=== PATIENT | female | born 1990 | race American Indian/Alaskan Native ===

== ENCOUNTER 2021-01-13 09:53 | Outpatient (CLI) | payer BC ==
[2021-01-13 10:43] LABS: Blood Urea Nitrogen 13 mg/dL (7-17)
--- NOTE | 2021-01-13 12:03 | Cat Scan Report ---
CT ABDOMEN AND PELVIS WITHOUT AND WITH CONTRAST HISTORY: PAIN IN PELVIS/ cramps frequent bowel movements, [id number] 100ml COMPARISON: None TECHNIQUE: Routine abdominal and pelvic CT exam performed without and with IV contrast. All CT scans at this location are performed using CT dose reduction for ALARA by means of automated exposure contr ol. FINDINGS: CT ABDOMEN: Lung Bases: No significant abnormality. Liver: No significant abnormality. Biliary: No significant abnormality. Spleen: No significant abnormality. Unenlarged. Pancreas: No significant abnormality. Adrenals: No significant abnormality. Kidneys: No significant abnormality. Lymphatics: No lymphadenopathy. Vasculature: No significant abnormality. Bowel/Peritoneum: No significant abnormality. No free air. No free fluid. CT PELVIC: : No significant abnormality. Lymphatics: No lymphadenopathy. Osseous Structures: No aggressive appearing osseous lesions. Additional Findings: None IMPRESSION: 1. No significant abnormality. Signer Name: Krunal Rivera MD Signed: 01/13/2021 11:59 AM Workstation Name: [id number]
== END 2021-01-13 09:54 | disposition home or self-care (01) ==
LOC: CT 09:53
PROVIDERS: ATTEND Obstetrics & Gynecology Gynecology
DX: R10.2 Pelvic and perineal pain (principal)
CPT/HCPCS: 36415; 74178; 82565; 84520; Q9967

== ENCOUNTER 2021-07-12 14:23 | Emergency (ER) | payer BC ==
[2021-07-12] MEDS ORDERED: HYDROcodone/ACETAMINOPHEN 5-325 MG TAB PO ONE (15:52)
[2021-07-12] MEDS ORDERED: ONDANSETRON 4 MG ODT TAB PO ONE (15:52)
--- NOTE | 2021-07-12 15:54 | Emergency Department Report ---
ED Abdominal Pain HPI - General Chief Complaint: Abdominal Pain Stated Complaint: AB PAIN Time Seen by Provider: 07/12/21 15:32 Source: patient Mode of arrival: Ambulatory Limitations: No Limitations - History of Present Illness Initial Comments: Patient presents with abdominal pain. She had a recent laparoscopy for endometriosis. Subsequent to that, she has had increasing pain. The procedure was done about 2 weeks ago. She states that the pain is all left-sided and in the pelvis. She had seen her planer operator for follow-up. He was told her that this was related to the insufflation and gas. She was having some brown and bloody discharge. He told her that was normal. Now she is having bloody discharge that is bright red. She does not know if this is her normal menstrual cycle or if there is something else going on. She came here for evaluation and treatment. She has not had anything for pain. The pain is described as severe and cramping. It does not radiate or migrate. Severity scale (0 -10): 10 - Related Data Previous Rx's Medication Instructions Recorded Last Taken Type HYDROcodone/APAP 5-325 [[place] 1 each PO Q6HR PRN #12 tablet 07/12/21 Unknown Rx 5/325] Ibuprofen [Motrin] 600 mg PO Q8H PRN #20 tablet 07/12/21 Unknown Rx Allergies Allergy/AdvReac Type Severity Reaction Status Date / Time No Known Allergies Allergy Verified 07/12/21 15:27 ED Review of Systems ROS: Stated complaint: AB PAIN Other details as noted in HPI Comment: All other systems reviewed and negative Constitutional: denies: fever ENT: denies: throat pain Respiratory: denies: cough Cardiovascular: denies: chest pain Gastrointestinal: as per HPI Genitourinary: as per HPI Skin: denies: rash Hematological/Lymphatic: denies: easy bruising ED Past Medical Hx - Past Medical History Additional medical history: Possible endometriosis - Surgical History Additional Surgical History: Recent laparoscopy - Social History Smoking Status: Never Smoker Substance Use Type: None - Medications Home Medications: Home Medications Medication Instructions Recorded Confirmed Last Taken Type HYDROcodone/APAP 5-325 [[place] 1 each PO Q6HR PRN #12 tablet 07/12/21 Unknown Rx 5/325] Ibuprofen [Motrin] 600 mg PO Q8H PRN #20 tablet 07/12/21 Unknown Rx ED Physical Exam - General Limitations: No Limitations, Other (Pulse ox noted and normal) General appearance: alert, in no apparent distress - Head Head exam: Present: atraumatic, normocephalic - Eye Eye exam: Present: normal appearance, EOMI - ENT ENT exam: Present: normal external ear exam - Neck Neck exam: Present: normal inspection - Respiratory Respiratory exam: Present: normal lung sounds bilaterally. Absent: respiratory distress - Cardiovascular Cardiovascular Exam: Present: regular rate, normal rhythm - GI/Abdominal GI/Abdominal exam: Present: soft, tenderness (Left pelvis and lower quadrant). Absent: guarding, rebound - Extremities Exam Extremities exam: Absent: pedal edema - Back Exam Back exam: Absent: CVA tenderness (L) - Neurological Exam Neurological exam: Present: alert, oriented X3, CN II-XII intact, normal gait - Psychiatric Psychiatric exam: Present: normal affect, normal mood - Skin Skin exam: Present: warm, dry ED Course Vital Signs 07/12/21 07/12/21 07/12/21 14:26 15:24 15:26 Temperature 99.0 F 97.6 F 97.6 F Pulse Rate 86 80 72 Respiratory 18 20 20 Rate Blood Pressure 111/80 125/75 Blood Pressure 130/86 [Left] O2 Sat by Pulse 100 99 100 Oximetry - Reevaluation(s) Reevaluation #1: 07/12/21 15:54 Labs were ordered. X-rays were ordered. Old records noted. Reevaluation #2: 07/12/21 18:31 Patient later complained that her thumb was sore. She requested x-rays. X-rays and work-up was complete. Patient was discharged. ED Medical Decision Making - Lab Data Result diagrams: 07/12/21 16:03 07/12/21 16:03 - Radiology Data Radiology results: report reviewed - Medical Decision Making Patient presents with postop abdominal pain. Etiology for this is not known. There is no evidence of perforation. She has no fever or leukocytosis. There is no peritoneal finding. I do not believe this represents any type of peritonitis or intraperitoneal abscess. She does not have pyuria suggestive of urinary tract infection. She does not report flank pain on the left suggestive of ureteral colic. She did break her thumb, but this is an avulsion fracture that will heal without difficulty. She can follow-up with her family doctor in 7 to 10 days. I do not anticipate surgical intervention. Critical Care Time: No Critical care attestation.: If time is entered above; I have spent that time in minutes in the direct care of this critically ill patient, excluding procedure time. ED Disposition Clinical Impression: Postoperative abdominal pain, Dysfunctional uterine bleeding Fracture of thumb, right, closed Qualifiers: Encounter type: initial encounter Phalanx: proximal Fracture alignment: displaced Qualified Code(s): S62.511A - Displaced fracture of proximal phalanx of right thumb, initial encounter for closed fracture Disposition: HOME / SELF CARE / HOMELESS Is pt being admited?: No Condition: Stable Instructions: How to Use Cold Therapy, [id number], Thumb Fracture, Abdominal Pain, Adult, [id number], Abnormal Uterine Bleeding, [id number], Abdominal Pain (ED) Additional Instructions: Have a bland diet. Elevate the thumb and ice the thumb. Wear the splint. Return for problems. Follow-up with your surgeon and your family doctor for recheck. Prescriptions: Ibuprofen [Motrin] 600 mg PO Q8H PRN #20 tablet PRN Reason: Pain HYDROcodone/APAP 5-325 [[place] 5/325] 1 each PO Q6HR PRN #12 tablet PRN Reason: Pain Referrals: FRANKI THOMPSON MD [Other] - 3-5 Days
[2021-07-12 16:24] LABS: Hematocrit 39.9 % (30.3-42.9); Hemoglobin 13.1 gm/dl (10.1-14.3); Mean Corpuscular HGB Conc 33 % (30-34); Mean Corpuscular Volume 97 fl (79-97); Platelet Count 273 K/mm3 (140-440); Red Blood Count 4.12 M/mm3 (3.65-5.03); Red Cell Distribution Width 13.2 % (13.2-15.2)
[2021-07-12 16:37] LABS: BUN/Creatinine Ratio 11; Blood Urea Nitrogen 9 mg/dL (7-17); Calcium 9.7 mg/dL (8.4-10.2); Hemolysis Index 2
--- NOTE | 2021-07-12 17:39 | XRay Report ---
ABDOMEN 3 VIEW(S) INDICATION / CLINICAL INFORMATION: post op pain. COMPARISON: None available. FINDINGS: TUBES / LINES: None. BOWEL GAS PATTERN: No significant abnormality. FREE AIR / EXTRALUMINAL GAS: None seen. ADDITIONAL FINDINGS: Clear lungs with normal heart size. IMPRESSION: 1. No significant abnormality. Signer Name: Gerardo Wooten MD Signed: 07/12/2021 5:34 PM Workstation Name: [id number]
--- NOTE | 2021-07-12 17:40 | XRay Report ---
Right thumb-3 views INDICATION: pain. Acute swelling COMPARISON: None available. IMPRESSION: Minimally displaced obliquely oriented intra-articular fracture along the base of the pr oximal phalanx radially with mild overlying swelling. Otherwise normal alignment. No significant DJD . Signer Name: Gerardo Wooten MD Signed: 07/12/2021 5:35 PM Workstation Name: [id number]
[2021-07-12 17:59] LABS: Mucus,Urine FEW /HPF
[2021-07-12 18:12] LABS: RBC,Urine > 182.0 /HPF (0.0-6.0)
[2021-07-12 18:18] LABS: Bilirubin,Urine Negative (Negative); Blood,Urine Moderate (Negative); Color,Urine Yellow (Yellow)
[2021-07-12 18:19] LABS: Urobilinogen,Urine < 2.0 mg/dL (<2.0)
[2021-07-12 18:39] VITALS: BP 121/75
== END 2021-07-12 19:05 | disposition home or self-care (01) ==
LOC: ED 14:23
DX: S62.501A Fracture of unspecified phalanx of right thumb, initial encounter for closed fracture (principal); G89.18 Other acute postprocedural pain; N93.8 Other specified abnormal uterine and vaginal bleeding; X58.XXXA Exposure to other specified factors, initial encounter; Y93.89 Activity, other specified; Y92.89 Other specified places as the place of occurrence of the external cause; Y99.8 Other external cause status
CPT/HCPCS: 36415; 74022; 80048; 81001; 84703; 85027; 99284; J3490; Q0162

== ENCOUNTER 2021-08-10 14:02 | Outpatient (CLI) | payer BC ==
--- NOTE | 2021-08-10 14:46 | XRay Report ---
RIGHT HAND 2 VIEWS INDICATION / CLINICAL INFORMATION: RT HAND PAIN COMPARISON: 07/12/2021 FINDINGS: BONES / JOINT(S): No acute fracture or subluxation. There is interval healing at the previously seen minimally displaced fracture at the base of the thumb proximal phalanx. No significant arthritis. SOFT TISSUES: No significant abnormality. ADDITIONAL FINDINGS: None. IMPRESSION: No new findings. There is interval healing at the previously seen proximal phalanx right thumb fractu re. Signer Name: Delio Alston MD Signed: 08/10/2021 2:42 PM Workstation Name: [id number]
== END 2021-08-10 14:03 | disposition home or self-care (01) ==
LOC: XRAY 14:02
PROVIDERS: ATTEND Orthopaedic Surgery
DX: S62.511D Displaced fracture of proximal phalanx of right thumb, subsequent encounter for fracture with routine healing (principal); X58.XXXD Exposure to other specified factors, subsequent encounter

== ENCOUNTER 2021-08-23 10:54 | Outpatient (CLI) | payer BC ==
--- NOTE | 2021-08-23 14:24 | XRay Report ---
RIGHT HAND 3 VIEWS INDICATION: M79.641 PAIN IN RIGHT HAND. COMPARISON: None. IMPRESSION: There is a subtle nondisplaced cortical defect at the base of the proximal phalanx of th e right thumb laterally. I suppose a chip fracture or nondisplaced avulsion injury could be consider ed. Please correlate with the patient. The remaining bony structures are intact. No joint pathology i s detected. Soft tissues of the thumb appear mildly edematous. Signer Name: Geo Dee Jr, MD Signed: 08/23/2021 2:20 PM Workstation Name: [id number]
== END 2021-08-23 10:55 | disposition home or self-care (01) ==
LOC: XRAY 10:54
PROVIDERS: ATTEND Orthopaedic Surgery
DX: M79.641 Pain in right hand (principal)

== ENCOUNTER 2021-10-24 09:39 | Emergency (ER) | payer BC, OTHER ==
[2021-10-24] MEDS ORDERED: ACETAMINOPHEN 325 MG TAB PO ONE (09:46)
--- NOTE | 2021-10-24 10:24 | XRay Report ---
XR chest routine 2V INDICATION / CLINICAL INFORMATION: FEVER. COMPARISON: 07/12/2021 FINDINGS: SUPPORT DEVICES: None. HEART /PULMONARY VASCULATURE: No significant abnormality. LUNGS / PLEURA: No significant pulmonary or pleural abnormality. No pneumothorax. ADDITIONAL FINDINGS: No significant additional findings. IMPRESSION: 1. No acute findings. Signer Name: Desmond Eldridge MD Signed: 10/24/2021 10:19 AM Workstation Name: [id number]
[2021-10-24 11:57] LABS: Mucus,Urine FEW /HPF; WBC,Urine < 1.0 /HPF (0.0-6.0)
[2021-10-24 12:08] LABS: Bilirubin,Urine Negative (Negative); Color,Urine Colorless (Yellow)
[2021-10-24 12:09] LABS: Blood,Urine Trace (Negative); Protein,Urine <15 mg/dL mg/dL (Negative)
[2021-10-24 12:10] LABS: HCG Qualitative,Urine Negative (Negative); Urobilinogen,Urine < 2.0 mg/dL (<2.0)
--- NOTE | 2021-10-24 12:32 | Emergency Department Report ---
- General Chief Complaint: Fever Stated Complaint: FLU SX Source: patient Mode of arrival: Ambulatory Limitations: No Limitations - History of Present Illness Initial Comments: Patient is a 31-year-old -Citizen Of The [place] female with no past medical history who presents to the ED with complaint of acute onset persistent nasal and sinus congestion, persistent diffuse body aches and pains, persistent dry cough, fever and chills for the last 2 days. Patient states that no one else at home is had similar symptoms. Patient states that she has not taken any medications for fever or for body aches and pains. Patient denies dizziness, syncope, nausea and vomiting, chest pain, shortness of breath, abdominal pain, dysuria, urinary frequency and urgency, vaginal bleeding, vaginal discharge or sore throat. MD Complaint: fever, cough, rhinorrhea, nasal congestion, sinus pain -: Sudden, days(s) (2), During the night Severity: severe Severity scale (0 -10): 7 Quality: sharp, aching Consistency: constant Improves With: nothing Worsens With: nothing Context: sick contacts Associated Symptoms: fever, chills, myalgias, headache, rhinorrhea, nasal congestion, cough. denies: diaphoresis, sore throat, chest pain, shortness of breath, abdominal pain, nausea, vomiting, diarrhea, rash, confusion, right sweats, weight loss, hoarseness, ear pain, other Treatments Prior to Arrival: none - Related Data Previous Rx's Medication Instructions Recorded Last Taken Type HYDROcodone/APAP 5-325 [[place] 1 each PO Q6HR PRN #12 tablet 07/12/21 Unknown Rx 5/325] Ibuprofen [Motrin] 600 mg PO Q8H PRN #20 tablet 07/12/21 Unknown Rx Acetaminophen [Tylenol] 500 mg PO Q6HR #30 tablet 10/24/21 Unknown Rx Benzonatate [Tessalon Perles] 100 mg PO Q8HR #30 cap 10/24/21 Unknown Rx Cetirizine HCl [Zyrtec 10mg tab] 10 mg PO DAILY #30 tab 10/24/21 Unknown Rx Ibuprofen [Motrin] 600 mg PO Q8H PRN #30 tablet 10/24/21 Unknown Rx Ondansetron [Zofran Odt] 4 mg PO Q8HR PRN #15 tab.rapdis 10/24/21 Unknown Rx Allergies Allergy/AdvReac Type Severity Reaction Status Date / Time No Known Allergies Allergy Verified 07/12/21 15:27 ED Review of Systems ROS: Stated complaint: FLU SX Other details as noted in HPI Constitutional: chills, fever, malaise. denies: weakness Eyes: denies: eye pain, eye discharge, vision change ENT: congestion. denies: epistaxis Respiratory: cough Cardiovascular: denies: chest pain, palpitations Endocrine: no symptoms reported Gastrointestinal: denies: abdominal pain, nausea, vomiting, diarrhea Genitourinary: denies: urgency, dysuria, discharge Musculoskeletal: arthralgia, myalgia. denies: back pain, joint swelling Skin: denies: rash, lesions Neurological: headache. denies: weakness, paresthesias Psychiatric: denies: anxiety, depression Hematological/Lymphatic: denies: easy bleeding, easy bruising ED Past Medical Hx - Past Medical History Previous Medical History?: No Additional medical history: Possible endometriosis - Surgical History Additional Surgical History: Recent laparoscopy - Social History Smoking Status: Never Smoker - Medications Home Medications: Home Medications Medication Instructions Recorded Confirmed Last Taken Type HYDROcodone/APAP 5-325 [[place] 1 each PO Q6HR PRN #12 tablet 07/12/21 Unknown Rx 5/325] Ibuprofen [Motrin] 600 mg PO Q8H PRN #20 tablet 07/12/21 Unknown Rx Acetaminophen [Tylenol] 500 mg PO Q6HR #30 tablet 10/24/21 Unknown Rx Benzonatate [Tessalon Perles] 100 mg PO Q8HR #30 cap 10/24/21 Unknown Rx Cetirizine HCl [Zyrtec 10mg tab] 10 mg PO DAILY #30 tab 10/24/21 Unknown Rx Ibuprofen [Motrin] 600 mg PO Q8H PRN #30 tablet 10/24/21 Unknown Rx Ondansetron [Zofran Odt] 4 mg PO Q8HR PRN #15 tab.rapdis 10/24/21 Unknown Rx ED Physical Exam - General Limitations: No Limitations General appearance: alert, in no apparent distress - Head Head exam: Present: atraumatic, normocephalic, normal inspection - Eye Eye exam: Present: normal appearance, PERRL, EOMI Pupils: Present: normal accommodation - ENT ENT exam: Present: normal orophraynx, mucous membranes moist, TM's normal bilaterally, normal external ear exam - Neck Neck exam: Present: normal inspection, full ROM, other. Absent: tenderness - Respiratory Respiratory exam: Present: normal lung sounds bilaterally. Absent: respiratory distress, rales, rhonchi, chest wall tenderness, accessory muscle use - Cardiovascular Cardiovascular Exam: Present: regular rate, normal rhythm, normal heart sounds. Absent: systolic murmur, diastolic murmur, rubs, gallop - GI/Abdominal GI/Abdominal exam: Present: soft, normal bowel sounds. Absent: tenderness, guarding, hyperactive bowel sounds, hypoactive bowel sounds, organomegaly, mass - Extremities Exam Extremities exam: Present: normal inspection, full ROM, normal capillary refill. Absent: tenderness - Back Exam Back exam: Present: normal inspection, full ROM, tenderness. Absent: muscle spasm, vertebral tenderness, rash noted - Neurological Exam Neurological exam: Present: alert, oriented X3, CN II-XII intact, normal gait, reflexes normal - Psychiatric Psychiatric exam: Present: normal affect, normal mood, anxious - Skin Skin exam: Present: warm, dry, intact, normal color. Absent: rash ED Course Vital Signs 10/24/21 10/24/21 10/24/21 09:42 12:51 13:12 Temperature 102.1 F H 99.6 F Pulse Rate 95 H 80 80 Respiratory 14 18 18 Rate Blood Pressure 98/69 Blood Pressure 114/67 114/67 [Right] O2 Sat by Pulse 100 99 99 Oximetry ED Medical Decision Making - Radiology Data Radiology results: report reviewed, image reviewed [facility] [address] [place] [address] XRay Report Signed Patient: GURWINDER WALTON MR#: [id number] : 1990 Acct:[id number] Age/Sex: 31 / F ADM Date: 10/24/21 Loc: ED Attending Dr: Ordering Physician: DEON FONSECA Date of Service: 10/24/21 Procedure(s): XR chest routine 2V Accession Number(s): [id number] cc: DEON FONSECA Fluoro Time In Minutes: XR chest routine 2V INDICATION / CLINICAL INFORMATION: FEVER. COMPARISON: 07/12/2021 FINDINGS: SUPPORT DEVICES: None. HEART /PULMONARY VASCULATURE: No significant abnormality. LUNGS / PLEURA: No significant pulmonary or pleural abnormality. No pneumothorax. ADDITIONAL FINDINGS: No significant additional findings. IMPRESSION: 1. No acute findings. Signer Name: Ora Eldridge MD Signed: 10/24/2021 10:19 AM Workstation Name: [id number] Transcribed By: NEEL Dictated By: ORA ELDRIDGE MD Electronically Authenticated By: ORA ELDRIDGE MD Signed Date/Time: 10/24/21 1019 DD/ 101 TD/TT: - Medical Decision Making This is a 31-year-old -Citizen Of [place] female with no past medical history who presents to the ED with complaint of acute onset persistent nasal and sinus congestion, persistent diffuse body aches and pains, persistent dry cough, fever and chills for the last 2 days. Patient states that no one else at home is had similar symptoms. Patient states that she has not taken any medications for fever or for body aches and pains. In the ED, patient is alert and oriented x3 and is not in any distress. Patient however is febrile in triage. Patient was treated for fever in the ED. Chest x-ray showed no acute cardiopulmonary abnormalities or pneumonitis. Rapid influenza test was negative. On reeval uation, patient's fever resolved with medication. Patient's body aches and pains also resolved. Patient symptoms are likely viral, possibly COVID-19 viral infection or any other upper respiratory infection viruses which were not detected by the test performed. Patient was advised to go for COVID-19 test in any of the outpatient facilities in the positive to self quarantine at home for 5 days. Patient was advised to return to the ED immediately if symptoms get worse. Patient was advised to follow-up with her primary care physician in 7 to 10 days for reevaluation or return to the ED immediately if symptoms get worse. - Differential Diagnosis Influenza; COVID-19; bronchitis; strep; pneumonia; URI; UTI Critical care attestation.: If time is entered above; I have spent that time in minutes in the direct care of this critically ill patient, excluding procedure time. ED Disposition Clinical Impression: Acute upper respiratory infection, Flu-like symptoms, Fever and chills Disposition: HOME / SELF CARE / HOMELESS Is pt being admited?: No Does the pt Need Aspirin: No Condition: Stable Instructions: Cough, Adult, [id number], Upper Respiratory Infection, Adult, Pbrz-aa-Sirc, Fever, Adult, [id number] Additional Instructions: Rapid influenza test was negative. Chest x-ray showed no acute cardiopulmonary abnormalities or pneumonitis. Your symptoms are likely still viral. Therefore go for COVID-19 testing in any of the outpatient facilities to confirm and ascertain whether you have COVID or not. Therefore take medication as advised, drink plenty of fluids, follow-up with your primary care physician in 7 to 10 days for reevaluation. Return to the ED immediately if symptoms get worse. Prescriptions: Acetaminophen [Tylenol] 500 mg PO Q6HR #30 tablet Ibuprofen [Motrin] 600 mg PO Q8H PRN #30 tablet PRN Reason: Pain Benzonatate [Tessalon Perles] 100 mg PO Q8HR #30 cap Ondansetron [Zofran Odt] 4 mg PO Q8HR PRN #15 tab.rapdis PRN Reason: Nausea Cetirizine HCl [Zyrtec 10mg tab] 10 mg PO DAILY #30 tab Referrals: JESSICA SAVAGE MD [Staff Physician] - 7-10 days Forms: Work/School Release Form(ED) Time of Disposition: 12:38 Print Language: KHMER
[2021-10-24 12:52] VITALS: BP 114/67
== END 2021-10-24 13:15 | disposition home or self-care (01) ==
LOC: ED 09:39
DX: J06.9 Acute upper respiratory infection, unspecified (principal); R50.9 Fever, unspecified; Z98.890 Other specified postprocedural states
CPT/HCPCS: 71046; 81001; 81025; 99284; 87502

== ENCOUNTER 2021-11-09 12:53 | Outpatient (CLI) | payer OTHER ==
--- NOTE | 2021-11-09 16:18 | Magnetic Resonance Report ---
MRI RIGHT HAND WITHOUT CONTRAST INDICATION / CLINICAL INFORMATION: M79.644 PAIN IN RIGHT FINGERS. TECHNIQUE: Multiplanar, multisequence MR images were obtained. COMPARISON: None available. FINDINGS: FLEXOR TENDONS: No significant abnormality. EXTENSOR TENDONS: No significant abnormality. LIGAMENTS: No significant abnormality. BONES: No significant bone marrow edema. No fracture. No osseous lesion. JOINT SPACES: No significant arthritis. No significant joint effusion or synovitis. MUSCLES: No significant abnormality. SOFT TISSUES: No significant abnormality. ADDITIONAL FINDINGS: None. IMPRESSION: 1. No significant abnormality. Report dictated by: Jl Philippe DO Report dictated on: 11/09/2021 2:22 PM I have reviewed the images, agree with this report, and edited this report as needed. Signer Name: Dane Pineda MD Signed: 11/09/2021 4:14 PM Workstation Name: [id number]
== END 2021-11-09 12:54 | disposition home or self-care (01) ==
LOC: MRI 12:53
PROVIDERS: ATTEND Orthopaedic Surgery
DX: M79.644 Pain in right finger(s) (principal)

== ENCOUNTER 2021-12-26 08:58 | Emergency (ER) | payer OTHER ==
[2021-12-26] MEDS ORDERED: TETANUS,DIPH,PERTUSS(ACELL) VACCINE 0.5 ML SYRINGE IM ONE (09:20)
--- NOTE | 2021-12-26 09:42 | Emergency Department Report ---
ED Laceration HPI - HPI Chief Complaint: Wound/Laceration Stated Complaint: LT FINGER INJURY Time Seen by Provider: 12/26/21 09:02 Occurred When: Today Location: Upper Extremity Severity: mild Tetanus Status: Not up to Date Laceration Symptoms: Yes Pain, No Foreign Body Sensation, No Numbness, No Weakness Other History: This is a 31-year-old female nontoxic, well nourished in appearance, no acute signs of distress presents to the ED with c/o of left distal middle finger laceration that occurred today at work while using scissors. Patient denies decreased sensation or range of motion. Patient stated bleeding is under control. Denies any numbness, tingling, fever, chills, nausea, vomiting, chest pain, shortness of breath, headache or stiff neck. Patient denies any allergies to significant past medical history. Patient is that he is not up-to-date with tetanus. ED Review of Systems ROS: Stated complaint: LT FINGER INJURY Other details as noted in HPI Comment: All other systems reviewed and negative Constitutional: denies: chills, fever Eyes: denies: eye pain, eye discharge, vision change ENT: denies: ear pain, throat pain Respiratory: denies: cough, shortness of breath, wheezing Cardiovascular: denies: chest pain, palpitations Endocrine: no symptoms reported Gastrointestinal: denies: abdominal pain, nausea, diarrhea Genitourinary: denies: urgency, dysuria, discharge Musculoskeletal: denies: back pain, joint swelling, arthralgia Skin: denies: rash, lesions Neurological: denies: headache, weakness, paresthesias Psychiatric: denies: anxiety, depression Hematological/Lymphatic: denies: easy bleeding, easy bruising ED Past Medical Hx - Past Medical History Previous Medical History?: No Additional medical history: Possible endometriosis - Surgical History Additional Surgical History: Recent laparoscopy - Social History Smoking Status: Light Tobacco Smoker - Medications Home Medications: Home Medications Medication Instructions Recorded Confirmed Last Taken Type HYDROcodone/APAP 5-325 [[place] 1 each PO Q6HR PRN #12 tablet 07/12/21 Unknown Rx 5/325] Ibuprofen [Motrin] 600 mg PO Q8H PRN #20 tablet 07/12/21 Unknown Rx Acetaminophen [Tylenol] 500 mg PO Q6HR #30 tablet 10/24/21 Unknown Rx Benzonatate [Tessalon Perles] 100 mg PO Q8HR #30 cap 10/24/21 Unknown Rx Cetirizine HCl [Zyrtec 10mg tab] 10 mg PO DAILY #30 tab 10/24/21 Unknown Rx Ibuprofen [Motrin] 600 mg PO Q8H PRN #30 tablet 10/24/21 Unknown Rx Ondansetron [Zofran Odt] 4 mg PO Q8HR PRN #15 tab.rapdis 10/24/21 Unknown Rx Naproxen 500 mg PO Q12H PRN #12 tab 12/26/21 Unknown Rx Laceration Physical Exam - Exam General: Vital signs noted. No distress. Alert and acting appropriately. Neurovascular within normal limits to left hand. Wound Length (cm): 1 (Distal left middle finger superficial) Laceration Location: Upper Extremity Laceration Exam: Yes Normal Distal CMS, No Foreign Body, No Exposed Tendon, Vessel, or Nerve, No Tendon Injury ED Course Vital Signs 12/26/21 09:01 Temperature 98.3 F Pulse Rate 65 Respiratory 14 Rate Blood Pressure 112/64 O2 Sat by Pulse 98 Oximetry - Reevaluation(s) Reevaluation #1: 12/26/21 09:41 Patient is speaking in full sentences with no signs of distress noted. - Laceration /Wound Repair Left Finger Wound Location: upper extremity (Left distal left middle finger) Wound Length (cm): 1 Wound's Depth, Shape: superficial Wound Explored: clean Irrigated w/ Saline (ccs): 40 Betadine Prep?: Yes Wound Repaired With: Dermabond Layer Closure?: No Sterile Dressing Applied?: Yes Progress: Under sterile field, I used Betadine to clean the area. I then used 40 mL of normal saline to flush the area. I then used Dermabond to approximate the laceration. I then applied a sterile 4 x 4 with tape. Minimal bleeding noted but is under control. Patient tolerated procedure well with no signs of distress. ED Medical Decision Making - Radiology Data [facility] [address] [place] [address] XRay Report Signed Patient: GURWINDER WALTON MR#: [id number] : 1990 Acct:[id number] Age/Sex: 31 / F ADM Date: 12/26/21 Loc: ED Attending Dr: Ordering Physician: ADONAY SMITH NP Date of Service: 12/26/21 Procedure(s): XR finger(s) 2+V LT Accession Number(s): [id number] cc: ADONAY SMITH NP Fluoro Time In Minutes: LEFT FINGER 2 VIEWS INDICATION / CLINICAL INFORMATION: lac. COMPARISON: None available. FINDINGS: BONES / JOINT(S): No acute fracture or subluxation. No significant arthritis. SOFT TISSUES: No significant abnormality. ADDITIONAL FINDINGS: None. Signer Name: Jluis Caraballo MD Signed: 12/26/2021 10:05 AM Workstation Name: [email or web address] Transcribed By: ES Dictated By: Jluis Caraballo MD Electronically Authenticated By: Jluis Caraballo MD Signed Date/Time: 12/26/21 1005 DD/ 1003 TD/TT: - Medical Decision Making This is a 31-year-old female that presents with laceration. Patient is stable and was examined by me. The laceration Dermabond has been performed and has been performed and patient tolerated well. A sterile dressing has been applied. Patient was educated on proper wound care. Patient was instructed to refer to Follow-up with a primary care doctor in 3-5 days or if symptoms worsen and continue return to emergency room as soon as possible. At time of discharge, the patient does not seem toxic or ill in appearance. No acute signs of distress noted. Patient agrees to discharge treatment plan of care. No further questions noted by the patient. Critical care attestation.: If time is entered above; I have spent that time in minutes in the direct care of this critically ill patient, excluding procedure time. ED Disposition Clinical Impression: Laceration Disposition: 01 HOME / SELF CARE / HOMELESS Is pt being admited?: No Does the pt Need Aspirin: No Condition: Stable Instructions: Tissue Adhesive Wound Care, Laceration Care, Adult Additional Instructions: Follow-up with a primary care doctor in 3-5 days or if symptoms worsen and continue return to emergency room as soon as possible. No physical or strenous activity that extremity until dermabond removes by itself and laceration is healed. Prescriptions: Naproxen 500 mg PO Q12H PRN #12 tab PRN Reason: Pain , Severe (7-10) Referrals: PRIMARY MD VANDANA [Referring] - 3-5 Days JESSICA SAVAGE MD [Staff Physician] - 3-5 Days Forms: Work/School Release Form(ED) Time of Disposition: 10:14
--- NOTE | 2021-12-26 10:09 | XRay Report ---
LEFT FINGER 2 VIEWS INDICATION / CLINICAL INFORMATION: lac. COMPARISON: None available. FINDINGS: BONES / JOINT(S): No acute fracture or subluxation. No significant arthritis. SOFT TISSUES: No significant abnormality. ADDITIONAL FINDINGS: None. Signer Name: Jlusi Caraballo MD Signed: 12/26/2021 10:05 AM Workstation Name: [email or web address]
[2021-12-26 10:49] VITALS: BP 118/72
== END 2021-12-26 19:00 | disposition home or self-care (01) ==
LOC: ED 08:58
DX: S61.211A Laceration without foreign body of left index finger without damage to nail, initial encounter (principal); X58.XXXA Exposure to other specified factors, initial encounter; Y93.89 Activity, other specified; Y92.89 Other specified places as the place of occurrence of the external cause; Y99.8 Other external cause status; F17.200 Nicotine dependence, unspecified, uncomplicated
CPT/HCPCS: 90471; 90715; 99283